=== PATIENT | female | born 1950 | race Caucasian/White ===

== ENCOUNTER → 2023-10-04 | Outpatient (CLI) | payer MEDICARE, OTHER ==
[~2023-10-04] MED LIST: ASPI81CH PO; CARV3.125 PO; CETI5 PO; CIPR500 PO; Calcium Carbon500 M1 PO; Cipro250 MG PO; Cipro500 MG PO; FLUT.05NI; HYDR1TAB94 PO; MAGIC MOUTHWASH; METR500 PO; NAPR220 PO; NITR.4SL PO; NITR.4SL SL; PERIDEX15 ML MM; PHENA100 PO; PROM25 PO; Pyridium200 MG PO; QVAR7.3 G1 IH; UBID10 PO
== END | disposition home or self-care (01) ==
LOC: LAB 11:09 → LAB SHORT 11:09
DX: R35.0 Frequency of micturition (principal)
CPT/HCPCS: 87086